=== PATIENT | male | born 1955 | race Caucasian/White ===

== ENCOUNTER 2017-08-12 17:14 | Inpatient (IN) | payer MEDICARE ==
[~2017-08-12] VITALS: Ht 172.7 cm; Wt 69.5 kg
[~2017-08-12 17:14] MED LIST: CARV3.12 PO; FURO1TAB62 PO; HYDR-3133 PO; LACT10SO PO; LANTINJ SQ; LORA1TAB12 PO; METF500T PO; NOVOINJ3 SQ; OLAN5TAB PO; OMEP20TA93 PO; ONGL5TAB PO; QUET5TAB PO; SPIR50TA PO; TEMA30CA PO; ZIPR1CAP12 PO
[2017-08-12 17:45] VITALS: BP 190/85; PULSE 108; RESP 28; TEMP 101.2; O2SAT 95
--- NOTE | 2017-08-12 18:04 | HHI.HP ---
HPI Service [facility] Primary Care Physician Non-Staff Admission Diagnosis Diagnoses: Chief Complaint: confused, coughing Travel History International Travel<30 Days: No Contact w/Intl Traveler <30 Da: No Traveled to Known Affected Are: No History of Present Illness 61-year-old white male being admitted for encephalopathy and sepsis 2/2 PNA. History is limited as the patient is currently by himself upon presentation at our facility, remaining history obtained from emergency room physician and records. Patient himself states that he came over to the emergency room and [place] because he had a fever at home. He reports having a cough for the past week denies having any shortness of breath outside of his coughing spells. Reports having some nausea but no vomiting. Says he has not been able to produce any sputum but his cough does sound wet. Denies any diarrhea. He reports having cough induced chest pain as well. He also reports burning with urination. The emergency room physician mentioned that his says that he was confused this morning as well. Patient also reports having some right sided back pain as well that is new. He cannot answer where he is nor what month or year as it is accurately; additionally he is very slow in responding to these questions. In the emergency room chest x-ray was obtained which I have been reviewed which looks clear but the radiologist is reading a left lower lobe infiltrate. Patient was given IV fluids Rocephin and azithromycin out there before being transferred over. UA has significant WBCs. Patient has a past medical history significant for cirrhosis. He himself cannot specify the reason behind his cirrhosis. He says he used to drink but when asked when he stopped drinking, he significantly appears to space out and yet cannot answer the question. Nursing contact the who says he takes antipsychotic medications of olanzapine, ziprasidone, and quetiapine all because he has "manic depression and schizophrenia". Review of Systems Except as stated in HPI: all other systems reviewed are Neg Past Family Social History Past Medical History Significant for cirrhosis, hepatic encephalopathy, ascites. The patient has home meds listed for ziprasidone, quetiapine, and olanzapine. Allergies: Coded Allergies: Penicillins (Verified Allergy, Severe, Rash, 08/12/17) Physical Exam Physical Exam VS: afebrile GENERAL: Lying in bed, is in mild distress from his coughing spells, appears to be shaking from his fevers. SKIN: Warm and dry. EYES: Pupils equal and round and reactive. Has some scleral icterus. Also has mucus over his eyelashes bilaterally. ENT: No nasal bleeding or discharge. Mucous membranes pink and moist. CARDIOVASCULAR: tachycardic rate and reg rhythm. 1/6 ejection murmur RESPIRATORY: No accessory muscle use. Coarse breath sounds bilaterally with minimal crackles heard in the bases. GASTROINTESTINAL: Abdomen soft, non-tender, nondistended. Extremities: No clubbing, cyanosis, or edema. No obvious deformities. MUSCULOSKELETAL: grossly intact ROM with 5/5 strength in upper and lower extremities proximally; adequate muscle bulk and tone for age and habitus. Has mild right CVA tenderness to palpation. No tenderness to palpation over the spinous processes. NEUROLOGICAL: Is awake, but has slowed responses to my questions. Is able to follow commands well. Negative straight leg raise bilaterally, has intact chin to chest flexion with no nuchal rigidity noted. Has no tenderness to palpation over the occiput. PSYCHIATRIC: Appropriate mood and affect; insight and judgment are impaired. Caprini VTE Risk Assessment Caprini VTE Risk Assessment: Mod/High Risk (score >= 2) VTE Pharm Contraindication: High risk for bleeding Caprini Risk Assessment Model Point Value = 1 Point Value = 2 Point Value = 3 Point Value = 5 Age 41-60 Minor surgery BMI > 25 kg/m2 Swollen legs Varicose veins or History of unexplained or recurrent spontaneous Oral contraceptives or hormone replacement Sepsis (< 1 month) Serious lung disease, including pneumonia (< 1 month) Abnormal pulmonary function Acute myocardial infarction Congestive heart failure (< 1 month) History of inflammatory bowel disease Medical patient at bed rest Age 61-74 Arthroscopic surgery Major open surgery (> 45 min) Laparoscopic surgery (> 45 min) Malignancy Confined to bed (> 72 hours) Immobilizing plaster cast Central venous access Age >= 75 History of VTE Family history of VTE Factor V Leiden Prothrombin [id number] Lupus anticoagulant Anticardiolipin antibodies Elevated serum homocysteine Heparin-induced thrombocytopenia Other congenital or acquired thrombophilia Stroke (< 1 month) Elective arthroplasty Hip, pelvis, or leg fracture Acute spinal cord injury (< 1 month) Prophylaxis Regimen Total Risk Factor Score Risk Level Prophylaxis Regimen 0-1 Low Early ambulation 2 Moderate Order ONE of the following: *Sequential Compression Device (SCD) *Heparin 5000 units SQ BID 3-4 Higher Order ONE of the following medications: *Heparin 5000 units SQ TID *Enoxaparin/Lovenox 40 mg SQ daily (WT < 150 kg, CrCl > 30 mL/min) *Enoxaparin/Lovenox 30 mg SQ daily (WT < 150 kg, CrCl > 10-29 mL/min) *Enoxaparin/Lovenox 30 mg SQ BID (WT < 150 kg, CrCl > 30 mL/min) AND/OR *Sequential Compression Device (SCD) 5 or more Highest Order ONE of the following medications: *Heparin 5000 units SQ TID (Preferred with Epidurals) *Enoxaparin/Lovenox 40 mg SQ daily (WT < 150 kg, CrCl > 30 mL/min) *Enoxaparin/Lovenox 30 mg SQ daily (WT < 150 kg, CrCl > 10-29 mL/min) *Enoxaparin/Lovenox 30 mg SQ BID (WT < 150 kg, CrCl > 30 mL/min) AND *Sequential Compression Device (SCD) Assessment and Plan Assessment and Plan 61-year-old white male admitted for sepsis and encephalopathy secondary to pneumonia Sepsis (HR > 90 at ER, fever of 101 on floor) -Blood cultures drawn at emergency room, follow-up -Chest x-ray read indicates possible left lower lobe infiltrate -Continue with Rocephin and azithromycin, may need to expand antibiotics if fevers persist or if CT abd shows pyelonephritis -s/p IV fluid boluses followed by now IV hydration -CT scan of the abdomen and pelvis to rule out pyelonephritis as the urine may be indicative of pyelonephritis -lactic acid 2.2 upon ER presentation Encephalopathy -Possibly secondary to infection as well as hyperammonemia (58) -Fall precautions, treat infection, will give lactulose and zinc and repeat ammonia -head CT neg in ER -We will hold home Vistaril in light of altered mental status -not suspicious for meningitis at this time, monitor Cirrhosis -Continue home spironolactone and Lasix and coreg DIANELYS -Likely from dehydration from sepsis, IV hydration, renal function recheck in a.m. Hepatic insufficiency -Likely from cirrhosis, INR 1.3, minimizing antiplatelet drugs thrombocytopenia -likely 2/2 ETOH dx, repeat CBC in AM Diabetes -Continue with low-dose sliding scale, holding home medications for the time being Psych d/o -continue home meds, will obtain EKG to eval QTc given pt is on 3 atypical antipsychotics SCDs Physician Certification 2 Midnight Certification Type: Admission for Inpatient Services Order for Inpatient Services The services are ordered in accordance with Medicare regulations or non- Medicare payer requirements, as applicable. In the case of services not specified as inpatient-only, they are appropriately provided as inpatient services in accordance with the 2-midnight benchmark. Estimated LOS (days): 3 3 days is the estimated time the patient will need to remain in the hospital, assuming treatment plan goals are met and no additional complications. Post-Hospital Plan: Not yet determined Maximino Weaver MD Aug 12, 2017 18:04
[2017-08-12] MEDS ORDERED: TEMAZEPAM 15 MG CAP PO PRN (18:15)
[2017-08-12] MEDS ORDERED: GLUCAGON 1 MG/ML VIAL OTHER PRN (18:15)
[2017-08-12] MEDS: SODIUM CHLOR 0.9% 1000 ML INJ 1,000 ML IV SCH (18:15)
[2017-08-12] MEDS ORDERED: DEXTROSE 50% IN WATER 50 ML VIAL(D50) IV PUSH PRN (18:15)
[2017-08-12] MEDS ORDERED: LORazepam 1 MG TAB PO PRN (18:15)
[2017-08-12] MEDS: LACTULOSE SYRUP 20 GM/30 ML CUP PO SCH ×2 (18:30→20:41)
[2017-08-12] MEDS: SPIRONOLACTONE 50 MG TAB PO SCH (18:30)
[2017-08-12] MEDS: ACETAMINOPHEN 500 MG CPLT PO PRN (19:21)
[2017-08-12 20:00] VITALS: BP 156/85; PULSE 105; RESP 16; TEMP 100.7; O2SAT 97
[2017-08-12] MEDS ORDERED: IOHEXOL 350 MG/ML 10 ML VIAL (for RAD DIAG) IVCONTRAST ONE (20:00)
[2017-08-12] MEDS: METFORMIN HOLD POST IV CONTRAST SCH (20:00)
[2017-08-12] MEDS: CARVEDILOL 3.125 MG TAB PO SCH (20:41)
--- NOTE | 2017-08-12 20:42 | RADRPT ---
EXAM DATE/TIME: 08/12/2017 19:57 [facility] COMPARISON: No previous studies available for comparison. INDICATIONS : Polynephritis. IV CONTRAST: 75 cc Omnipaque 350 (iohexol) IV ORAL CONTRAST: No oral contrast ingested. RADIATION DOSE: 10.10 CTDIvol (mGy) MEDICAL HISTORY : Hypertension. Diabetes mellitus type 2. Cerebrovascular disease. SURGICAL HISTORY : None. ENCOUNTER: Initial ACUITY: 2 days PAIN SCALE: 8/10 LOCATION: Bilateral upper quadrant lower quadrant. TECHNIQUE: Volumetric scanning of the abdomen and pelvis was performed. Using automated exposure control and ad justment of the mA and/or kV according to patient size, radiation dose was kept as low as reasonably achievable to obtain optimal diagnostic quality images. DICOM format image data is available electro nically for review and comparison. FINDINGS: Small left pleural effusion. Extensive varices around the distal esophagus. Liver cirrhosis with live r decreased in size. Splenomegaly to about 18 cm. Extensive retroperitoneal and perisplenic varices. There are patchy perfusion defects in the kidneys most notable upper pole left kidney most characteri stic of pyelonephritis. No hydronephrosis. Calcified gallstones in the gallbladder neck. No significant biliary ductal dilatation. No ascites. Mild ileus. No free air. No acute bony abnormalities. CONCLUSION: 1. Multifocal areas of diminished perfusion in the kidneys most characteristic of pyelonephritis. No abscess. No hydronephrosis. 2. Liver cirrhosis with extensive varices. Splenomegaly. No ascites. 3. Calcified gallstones in the gallbladder neck. Jason Roe MD on August 12, 2017 at 20:36 Board Certified Radiologist. This report was verified electronically.
[2017-08-12] MEDS: INSULIN NovoLIN REGULAR SUPPLEMENTAL SCALE SQ SCH (20:48)
[2017-08-12] MEDS ORDERED: ZIPRASIDONE HCL 80 MG CAP PO SCH (21:00)
[2017-08-12] MEDS ORDERED: QUEtiapine FUMARATE 25 MG TAB PO SCH (21:00)
[2017-08-13] VITALS: BP 147/85; PULSE 103; RESP 16; TEMP 99.3; O2SAT 95
[2017-08-13] MEDS: SODIUM CHLOR 0.9% 1000 ML INJ 1,000 ML IV SCH ×2 (03:37→14:56)
[2017-08-13 06:24] LABS: AUTOMATED NEUTROPHIL # 4.8 TH/MM3 (1.8-7.7); BASOPHIL % 0.3 % (0.0-2.0); EOSINOPHIL % 0.5 % (0.0-4.0); HEMATOCRIT 33.7 % (39.0-51.0); HEMOGLOBIN 11.8 GM/DL (13.0-17.0); LYMPH % 13.4 % (9.0-44.0); LYMPHOCYTE # 0.8 TH/MM3 (1.0-4.8); MEAN CELL VOLUME 85.9 FL (80.0-100.0); MEAN CORPUSCULAR HEMOGLOBIN 30.2 PG (27.0-34.0); MEAN CORPUSCULAR HGB CONC 35.1 % (32.0-36.0); MEAN PLATELET VOLUME 9.7 FL (7.0-11.0); MONO % 9.5 % (0.0-8.0); MONOCYTE # 0.6 TH/MM3 (0-0.9); NEUT % 76.3 % (16.0-70.0); PLATELET COUNT 68 TH/MM3 (150-450); RED BLOOD COUNT 3.92 MIL/MM3 (4.50-5.90); RED CELL DISTRIBUTION WIDTH 14.6 % (11.6-17.2); WHITE BLOOD COUNT 6.2 TH/MM3 (4.0-11.0)
[2017-08-13 06:36] LABS: CALCIUM 7.9 MG/DL (8.5-10.1)
[2017-08-13 06:37] LABS: BICARBONATE 24.9 MEQ/L (21.0-32.0)
[2017-08-13 06:40] LABS: CREATININE 1.5 MG/DL (0.60-1.30)
[2017-08-13 08:00] VITALS: BP 154/73; PULSE 76; RESP 20; TEMP 101.9; O2SAT 95
[2017-08-13] MEDS ORDERED: cefTRIAXone INJ 1,000 MG in SODIUM CHLORIDE 0.9% INJ 100 ML IV SCH (08:00)
[2017-08-13] MEDS: INSULIN NovoLIN REGULAR SUPPLEMENTAL SCALE SQ SCH ×4 (08:00→20:58)
[2017-08-13] MEDS: ACETAMINOPHEN 500 MG CPLT PO PRN ×2 (08:12→20:58)
[2017-08-13] MEDS ORDERED: Vancomycin Consult Pharmacy 1 EA OTHER SCH (08:30)
[2017-08-13] MEDS ORDERED: MISCELLANEOUS PHARMACY INFORMATION XX PRN ×2 (08:30)
[2017-08-13] MEDS ORDERED: VANCOMYCIN INJ 1,000 MG in SODIUM CHLOR 0.9% 250 ML INJ 250 ML IV ONE (08:33)
[2017-08-13] MEDS ORDERED: AZITHROMYCIN INJ 500 MG in SODIUM CHLOR 0.9% 250 ML INJ 250 ML IV SCH (09:00)
[2017-08-13] MEDS: LACTULOSE SYRUP 20 GM/30 ML CUP PO SCH ×2 (09:22→20:45)
[2017-08-13] MEDS: PANTOPRAZOLE SOD 20 MG DELAYED RELEASE TAB PO SCH (09:22)
[2017-08-13] MEDS: FUROSEMIDE 20 MG TAB PO SCH (09:23)
[2017-08-13] MEDS: OLANZapine 5 MG TAB PO SCH (09:23)
[2017-08-13] MEDS: SPIRONOLACTONE 50 MG TAB PO SCH (09:23)
[2017-08-13] MEDS: CARVEDILOL 3.125 MG TAB PO SCH ×2 (09:23→20:45)
[2017-08-13] MEDS ORDERED: MEROPENEM INJ 1,000 MG in SODIUM CHLORIDE 0.9% INJ 100 ML IV SCH (10:00)
[2017-08-13 12:00] VITALS: BP 151/81; PULSE 75; RESP 20; TEMP 99.8; O2SAT 97
--- NOTE | 2017-08-13 14:58 | HHI.PR ---
Subjective Remarks Nursing report patient still having fevers this morning. Patient himself says that his pain is better in his lower back. thinks that his mental status is more improved compared to yesterday. However they think he is coughing more today. Objective Vital Signs Date Time Temp Pulse Resp B/P (MAP) Pulse Ox O2 Delivery O2 Flow Rate FiO2 08/13/17 12:00 99.8 75 20 151/81 (104) 97 08/13/17 08:00 101.9 76 20 154/73 (100) 95 08/13/17 00:00 99.3 103 16 147/85 (105) 95 08/12/17 20:00 100.7 105 16 156/85 (108) 97 08/12/17 17:45 101.2 108 28 190/85 (120) 95 I/O 08/12/17 08/12/17 08/12/17 08/13/17 08/13/17 08/13/17 07:00 15:00 23:00 07:00 15:00 23:00 Intake Total 480 ml 1052 ml Balance 480 ml 1052 ml Intake Oral 480 ml IV Total 1052 ml # Voids 5 # Bowel Movements 4 Result Diagram: 08/13/17 0527 08/13/17 0527 Imaging Last Impressions Abdomen/Pelvis CT 08/12/17 0000 Signed Impressions: Service Date/Time: Saturday, August 12, 2017 19:57 - CONCLUSION: 1. Multifocal areas of diminished perfusion in the kidneys most characteristic of pyelonephritis. No abscess. No hydronephrosis. 2. Liver cirrhosis with extensive varices. Splenomegaly. No ascites. 3. Calcified gallstones in the gallbladder neck. Jason Roe MD Objective Remarks Patient lying in bed, no acute distress Appears more awake alert and sharp today Is alert and oriented 3 Clear lungs bilaterally with no acute distress Has no obvious bilateral flank tenderness to palpation today A/P Assessment and Plan 61-year-old white male admitted for sepsis and encephalopathy secondary to pneumonia Sepsis -Blood cultures drawn at [place] emergency room, follow-up -Chest x-ray read indicates possible left lower lobe infiltrate -Given that CT abdomen is suspicious for pyelonephritis as well as urine analysis, I have switched his antibiotics from Rocephin and azithromycin to meropenem and vancomycin and consulted infectious disease since he is septic -IV hydration Encephalopathy -improving, -Fall precautions, treat infection, -continue lactulose and zinc and repeat ammonia -head CT neg in ER -not suspicious for meningitis at this time, monitor Cirrhosis -Continue home spironolactone and Lasix and coreg DIANELYS -improving, BMP in AM Hepatic insufficiency -Likely from cirrhosis, INR 1.3, minimizing antiplatelet drugs thrombocytopenia -likely 2/2 ETOH dx, stable Diabetes -Continue with low-dose sliding scale, holding home medications for the time being Psych d/o -continue home meds, Qtc stable at 480 SCDs Maximino Weaver MD Aug 13, 2017 14:58
--- NOTE | 2017-08-13 15:40 | PD.ID.CON ---
History of Present Illness Service ID Consult Requested By Dr Rasmussen Reason for Consult septic pyelo Primary Care Physician Non-Staff Diagnoses: History of Present Illness 61 yo male with h/o ETOH induced liver cirrhosis presented with 8 days of fever, chills, L side back pain for few days Presented with temps 101-102 range, high ammonia level Non comliant with lactulose Quit diking over 20 yrs ago No leukocytosis Review of Systems Constitutional: COMPLAINS OF: Fever, Chills Respiratory: COMPLAINS OF: Cough Gastrointestinal: COMPLAINS OF: Diarrhea Musculoskeletal: COMPLAINS OF: Back pain (L) Except as stated in HPI: all other systems reviewed are Neg Past Family Social History Allergies: Coded Allergies: Penicillins (Verified Allergy, Severe, Rash, 08/12/17) Past Medical History liver cirrosis HTN Past Surgical History none Active Ordered Medications Medications where reviewed in EMR Antibiotics Include: vancomycin meropenem Family History reviewed non contributory Social History no tobacco + past tobacco No current ETOH no IVDU Physical Exam Vital Signs Vital Signs Date Time Temp Pulse Resp B/P (MAP) Pulse Ox O2 Delivery O2 Flow Rate FiO2 08/13/17 12:00 99.8 75 20 151/81 (104) 97 08/13/17 08:00 101.9 76 20 154/73 (100) 95 08/13/17 00:00 99.3 103 16 147/85 (105) 95 08/12/17 20:00 100.7 105 16 156/85 (108) 97 08/12/17 17:45 101.2 108 28 190/85 (120) 95 Physical Exam CONSTITUTIONAL/GENERAL: This is an adequately nourished patient, in no apparent distress. TUBES/LINES/DRAINS: SKIN: No jaundice, rashes, or lesions. Skin temperature appropriate. Not diaphoretic. HEAD: Atraumatic. Normocephalic. EYES: Pupils equal and round and reactive. Extraocular motions intact. No scleral icterus. No injection or drainage. Fundi not examined. ENT: Hearing grossly normal. Nose without bleeding or purulent drainage. Throat without visible erythema, exudates, masses, or lesions. NECK: Trachea midline. Supple, nontender. No palpable thyroid enlargement or nodularity. CARDIOVASCULAR: Regular rate and rhythm without murmurs, gallops, or rubs. No JVD. Peripheral pulses symmetric. RESPIRATORY/CHEST: Symmetric, unlabored respirations. Clear to auscultation. Breath sounds equal bilaterally. No wheezes, rales, or rhonchi. GASTROINTESTINAL: Abdomen soft, non-tender, nondistended. No hepato-splenomegaly , or palpable masses. No guarding. Bowel sounds present. GENITOURINARY: Without palpable bladder distension. + moderate L CVA tenderness MUSCULOSKELETAL: + clubbing, no cyanosis, or edema. No joint tenderness or effusion noted. No calf tenderness. No mottling or clubbing. LYMPHATICS: No palpable cervical or supraclavicular adenopathy. NEUROLOGICAL: Awake and alert. Motor and sensory grossly within normal limits. Follows commands. Clear speech. Moves all extremities. PSYCHIATRIC: No obvious anxiety/depression. no apparent hallucinations or other psychotic thought process. Laboratory Laboratory Tests Test 08/13/17 05:27 White Blood Count 6.2 Red Blood Count 3.92 Hemoglobin 11.8 Hematocrit 33.7 Mean Corpuscular Volume 85.9 Mean Corpuscular Hemoglobin 30.2 Mean Corpuscular Hemoglobin Concent 35.1 Red Cell Distribution Width 14.6 Platelet Count 68 Mean Platelet Volume 9.7 Neutrophils (%) (Auto) 76.3 Lymphocytes (%) (Auto) 13.4 Monocytes (%) (Auto) 9.5 Eosinophils (%) (Auto) 0.5 Basophils (%) (Auto) 0.3 Neutrophils # (Auto) 4.8 Lymphocytes # (Auto) 0.8 Monocytes # (Auto) 0.6 Eosinophils # (Auto) 0.0 Basophils # (Auto) 0.0 CBC Comment AUTO DIFF Differential Comment AUTO DIFF CONFIRMED Platelet Estimate LOW Platelet Morphology Comment NORMAL Blood Urea Nitrogen 21 Creatinine 1.50 Random Glucose 179 Calcium Level 7.9 Sodium Level 142 Potassium Level 3.7 Chloride Level 112 Carbon Dioxide Level 24.9 Anion Gap 5 Estimat Glomerular Filtration Rate 48 Ammonia 39 Result Diagram: 08/13/17 0527 08/13/17 0527 Imaging Last Impressions Abdomen/Pelvis CT 08/12/17 0000 Signed Impressions: Service Date/Time: Saturday, August 12, 2017 19:57 - CONCLUSION: 1. Multifocal areas of diminished perfusion in the kidneys most characteristic of pyelonephritis. No abscess. No hydronephrosis. 2. Liver cirrhosis with extensive varices. Splenomegaly. No ascites. 3. Calcified gallstones in the gallbladder neck. Jason Roe MD Assessment and Plan Assessment and Plan Fever, L side pain, suspected pyelonephritis PCN allergy +cough ? flu - pt reports sick contacts@ home Liver cirrhosis; presented with decompensation Diarrnea (probably 2/2 lactulose) - cont vanco for now - switch meropenem to azactam UA/C+S flu test c.diff Discussed Condition With JANELLE Gray,Kristen Puentes MD Aug 13, 2017 15:40
[2017-08-13 16:00] VITALS: BP 155/83; PULSE 61; RESP 20; TEMP 99.6; O2SAT 98
[2017-08-13 16:38] LABS: BILIRUBIN, URINE NEG (NEG); BLOOD, URINE MOD (NEG); GLUCOSE,URINE NEG (NEG); KETONE, URINE NEG (NEG); NITRITE,URINE NEG (NEG); URINE LEUKOCYTE ESTERASE SMALL (NEG)
[2017-08-13 16:45] LABS: URINE COLOR YELLOW (YELLW/STRAW)
[2017-08-13 16:46] LABS: SQUAMOUS EPITHELIAL CELL URINE 0-5 /hpf (0-5); WHITE BLOOD CELL CLUMPS OCC
[2017-08-13] MEDS: AZTREONAM INJ 2,000 MG in SODIUM CHLORIDE 0.9% INJ 100 ML IV SCH ×2 (16:57→20:46)
[2017-08-13 20:01] VITALS: BP 167/90; PULSE 80; RESP 12; TEMP 101.2; O2SAT 95
[2017-08-13] MEDS: METFORMIN HOLD POST IV CONTRAST SCH (20:44)
--- NOTE | 2017-08-13 21:47 | EKG ---
Date Performed: 08/12/2017 Time Performed: 18:57:49 PTAGE: 61 years EKG: SINUS TACHYCARDIA POSSIBLE LEFT ATRIAL ENLARGEMENT LEFT BUNDLE BRANCH BLOCK ABNORMAL ECG NO PREVIOUS TRACING DOCTOR: Romario Sharpe Interpretating Date/Time 08/13/2017 21:46:20
[2017-08-14 01:13] VITALS: BP 164/99; PULSE 75; RESP 14; TEMP 98.9; O2SAT 96
[2017-08-14] MEDS: SODIUM CHLOR 0.9% 1000 ML INJ 1,000 ML IV SCH ×3 (02:05→21:09)
[2017-08-14] MEDS: VANCOMYCIN 1 GM/200 ML PREMIX IV SCH ×2 (03:13→21:07)
[2017-08-14] MEDS: AZTREONAM INJ 2,000 MG in SODIUM CHLORIDE 0.9% INJ 100 ML IV SCH ×4 (04:07→21:12)
[2017-08-14 06:54] LABS: CALCIUM 7.7 MG/DL (8.5-10.1)
[2017-08-14 06:55] LABS: BICARBONATE 22.8 MEQ/L (21.0-32.0)
[2017-08-14 06:58] LABS: CREATININE 1.4 MG/DL (0.60-1.30)
[2017-08-14 08:00] VITALS: BP 173/83; PULSE 61; RESP 20; TEMP 100; O2SAT 95
[2017-08-14] MEDS: INSULIN NovoLIN REGULAR SUPPLEMENTAL SCALE SQ SCH ×4 (08:40→21:12)
[2017-08-14] MEDS: CARVEDILOL 3.125 MG TAB PO SCH ×2 (08:41→21:07)
[2017-08-14] MEDS: SPIRONOLACTONE 50 MG TAB PO SCH (08:41)
[2017-08-14] MEDS: PANTOPRAZOLE SOD 20 MG DELAYED RELEASE TAB PO SCH (08:41)
[2017-08-14] MEDS: OLANZapine 5 MG TAB PO SCH (08:41)
[2017-08-14] MEDS: LACTULOSE SYRUP 20 GM/30 ML CUP PO SCH ×2 (08:41→21:07)
[2017-08-14] MEDS: FUROSEMIDE 20 MG TAB PO SCH (08:41)
[2017-08-14 12:00] VITALS: BP 176/84; PULSE 70; RESP 20; TEMP 98.7; O2SAT 93
--- NOTE | 2017-08-14 12:41 | HHI.PR ---
Subjective Remarks Nursing report patient is having recurring fevers now again. Patient himself says he is still feels like he has unchanged cough. Otherwise he denies any flank pain anymore. Objective Vital Signs Date Time Temp Pulse Resp B/P (MAP) Pulse Ox O2 Delivery O2 Flow Rate FiO2 08/14/17 12:00 98.7 70 20 176/84 (114) 93 08/14/17 08:00 100.0 61 20 173/83 (113) 95 08/14/17 01:13 98.9 75 14 164/99 (120) 96 08/13/17 20:01 101.2 80 12 167/90 (115) 95 08/13/17 16:00 99.6 61 20 155/83 (107) 98 I/O 08/13/17 08/13/17 08/13/17 08/14/17 08/14/17 08/14/17 06:59 14:59 22:59 06:59 14:59 22:59 Intake Total 1052 ml 450 ml 1066 ml 2400 ml Balance 1052 ml 450 ml 1066 ml 2400 ml Intake Oral 600 ml IV Total 1052 ml 450 ml 466 ml 2400 ml # Voids 5 3 # Bowel Movements 5 3 Result Diagram: 08/13/17 0527 08/14/17 0616 Objective Remarks Patient lying in bed, no acute distress Appears more awake alert and sharp today Is alert and oriented 3 Clear lungs bilaterally with no acute distress Has no bilateral flank tenderness to palpation today A/P Assessment and Plan 61-year-old white male admitted for sepsis and encephalopathy secondary to pneumonia Sepsis -Blood cultures drawn at [place] emergency room, follow-up -Chest x-ray read indicates possible left lower lobe infiltrate -IV hydration Pyelonephritis - ID following, appreciate recs, switched from Merrem to Unasyn - fevers recurring, RN instructed to notify ID Bacteremia showing + from blood cultures of G neg rods UTI showing pansensitive Ecoli Encephalopathy -improving, -Fall precautions, treat infection, -continue lactulose and zinc and repeat ammonia -head CT neg in ER -not suspicious for meningitis at this time, monitor Cirrhosis -Continue home spironolactone and Lasix and coreg DIANELYS -improving slowly, BMP in AM Hepatic insufficiency -Likely from cirrhosis, INR 1.3, minimizing antiplatelet drugs -Aldactone chronic thrombocytopenia -likely 2/2 ETOH dx, stable Diabetes -Continue with low-dose sliding scale Psych d/o -continue home meds, Qtc stable at 480 upon admission SCDs Maximino Weaver MD Aug 14, 2017 12:41
--- NOTE | 2017-08-14 14:05 | HHI.PR ---
Addendum to Inpatient Note Additional Information pt see around 1345 full note to follow Kristen Gray MD Aug 14, 2017 14:05
--- NOTE | 2017-08-14 15:38 | HHI.IDPN ---
Subjective Subjective Remarks doing OK fever up to 101 over 24 hrs, today 100 Resp panel negative UA abnormal, clx neg @ 24 hrs c/o cough Antibiotics azactam vanco Allergies: Coded Allergies: Penicillins (Verified Allergy, Severe, Rash, 08/12/17) Objective . Vital Signs Date Time Temp Pulse Resp B/P (MAP) Pulse Ox O2 Delivery O2 Flow Rate FiO2 08/14/17 12:00 98.7 70 20 176/84 (114) 93 08/14/17 08:00 100.0 61 20 173/83 (113) 95 08/14/17 01:13 98.9 75 14 164/99 (120) 96 08/13/17 20:01 101.2 80 12 167/90 (115) 95 08/13/17 16:00 99.6 61 20 155/83 (107) 98 08/14/17 08/14/17 08/15/17 15:00 23:00 07:00 Intake Total 960 ml Balance 960 ml Intake Oral 960 ml # Voids 4 # Bowel Movements 4 . Laboratory Tests Test 08/13/17 05:27 White Blood Count 6.2 TH/MM3 Red Blood Count 3.92 MIL/MM3 Hemoglobin 11.8 GM/DL Hematocrit 33.7 % Mean Corpuscular Volume 85.9 FL Mean Corpuscular Hemoglobin 30.2 PG Mean Corpuscular Hemoglobin Concent 35.1 % Red Cell Distribution Width 14.6 % Platelet Count 68 TH/MM3 Mean Platelet Volume 9.7 FL Neutrophils (%) (Auto) 76.3 % Lymphocytes (%) (Auto) 13.4 % Monocytes (%) (Auto) 9.5 % Eosinophils (%) (Auto) 0.5 % Basophils (%) (Auto) 0.3 % Neutrophils # (Auto) 4.8 TH/MM3 Lymphocytes # (Auto) 0.8 TH/MM3 Monocytes # (Auto) 0.6 TH/MM3 Eosinophils # (Auto) 0.0 TH/MM3 Basophils # (Auto) 0.0 TH/MM3 CBC Comment AUTO DIFF Differential Comment AUTO DIFF CONFIRMED Platelet Estimate LOW Platelet Morphology Comment NORMAL Laboratory Tests Test 08/13/17 05:27 08/14/17 06:16 Blood Urea Nitrogen 21 MG/DL 20 MG/DL Creatinine 1.50 MG/DL 1.40 MG/DL Random Glucose 179 MG/DL 160 MG/DL Calcium Level 7.9 MG/DL 7.7 MG/DL Sodium Level 142 MEQ/L 143 MEQ/L Potassium Level 3.7 MEQ/L 3.7 MEQ/L Chloride Level 112 MEQ/L 113 MEQ/L Carbon Dioxide Level 24.9 MEQ/L 22.8 MEQ/L Anion Gap 5 MEQ/L 7 MEQ/L Estimat Glomerular Filtration Rate 48 ML/MIN 52 ML/MIN Ammonia 39 MCMOL/L Microbiology Date/Time Source Procedure Growth Status 08/13/17 16:30 Urine Clean Catch Urine Culture - Preliminary NO GROWTH IN 24 HOURS. Resulted Imaging Last Impressions Abdomen/Pelvis CT 08/12/17 0000 Signed Impressions: Service Date/Time: Saturday, August 12, 2017 19:57 - CONCLUSION: 1. Multifocal areas of diminished perfusion in the kidneys most characteristic of pyelonephritis. No abscess. No hydronephrosis. 2. Liver cirrhosis with extensive varices. Splenomegaly. No ascites. 3. Calcified gallstones in the gallbladder neck. Jason Roe MD Physical Exam CONSTITUTIONAL/GENERAL: This is an adequately nourished patient, in no apparent distress. TUBES/LINES/DRAINS: SKIN: No jaundice, rashes, or lesions. Skin temperature appropriate. Not diaphoretic. CARDIOVASCULAR: Regular rate and rhythm without murmurs, gallops, or rubs. No JVD. Peripheral pulses symmetric. RESPIRATORY/CHEST: Symmetric, unlabored respirations. Clear to auscultation. Breath sounds equal bilaterally. No wheezes, rales, or rhonchi. GASTROINTESTINAL: Abdomen soft, non-tender, nondistended. No hepato-splenomegaly , or palpable masses. No guarding. Bowel sounds present. GENITOURINARY: Without palpable bladder distension. + moderate L CVA tenderness MUSCULOSKELETAL: + clubbing, no cyanosis, or edema. No joint tenderness or effusion noted. No calf tenderness. No mottling or clubbing. LYMPHATICS: No palpable cervical or supraclavicular adenopathy. NEUROLOGICAL: Awake and alert. Motor and sensory grossly within normal limits. Follows commands. Clear speech. Moves all extremities. PSYCHIATRIC: No obvious anxiety/depression. no apparent hallucinations or other psychotic thought process. Assessment & Plan Remarks Assessment and Plan Assessment and Plan Fever, L side pain, suspected pyelonephritis PCN allergy +cough ? flu - pt reports sick contacts@ home; viral panel negative Liver cirrhosis; presented with decompensation Diarrnea (probably 2/2 lactulose) - neg c.diff - cont vanco for now - cont azactam - will add azithrom CXR fu Kristen Gray MD Aug 14, 2017 15:38
[2017-08-14 16:00] VITALS: BP 171/86; PULSE 65; RESP 20; TEMP 99.1; O2SAT 95
[2017-08-14] MEDS ORDERED: AZITHROMYCIN 250 MG TAB PO ONE (16:00)
--- NOTE | 2017-08-14 16:31 | RADRPT ---
EXAM DATE/TIME: 08/14/2017 15:44 [place] COMPARISON: CHEST PA & LAT, August 12, 2017, 11:19. INDICATIONS : Cough, fever, and shortness of breath MEDICAL HISTORY : Hypertension. Diabetes mellitus type II. SURGICAL HISTORY : None. ENCOUNTER: Subsequent ACUITY: 3 days PAIN SCORE: 0/10 LOCATION: Bilateral chest FINDINGS: Interval improvement in left lower lobe airspace disease. Mild diffuse interstitial prominence unchan ged from prior exam. Cardiomediastinal contours are within normal limits. Remainder of the exam is un changed. CONCLUSION: 1. Near interval resolution of left lower lobe airspace disease. Bryan Ratliff MD on August 14, 2017 at 16:27 Board Certified Radiologist. This report was verified electronically.
[2017-08-14 20:00] VITALS: BP 178/93; PULSE 62; RESP 20; TEMP 99.2; O2SAT 96
[2017-08-14 20:20] LABS: CREATININE 1.4 MG/DL (0.60-1.30)
[2017-08-15] VITALS: BP_SYST 151; BP_SYST 178; BP_DIAS 80; BP_DIAS 93; PULSE 62; PULSE 71; RESP 20; TEMP 99.2; O2SAT 95; O2SAT 96
[2017-08-15] MEDS: AZTREONAM INJ 2,000 MG in SODIUM CHLORIDE 0.9% INJ 100 ML IV SCH ×2 (04:30→09:40)
[2017-08-15] MEDS: SODIUM CHLOR 0.9% 1000 ML INJ 1,000 ML IV SCH (05:36)
[2017-08-15 06:35] LABS: AUTOMATED NEUTROPHIL # 2.2 TH/MM3 (1.8-7.7); BASOPHIL # 0.1 TH/MM3 (0-0.2); BASOPHIL % 1.5 % (0.0-2.0); EOSINOPHIL # 0.1 TH/MM3 (0-0.4); EOSINOPHIL % 3.1 % (0.0-4.0); HEMATOCRIT 34.3 % (39.0-51.0); HEMOGLOBIN 11.6 GM/DL (13.0-17.0); LYMPH % 22.5 % (9.0-44.0); LYMPHOCYTE # 0.8 TH/MM3 (1.0-4.8); MEAN CELL VOLUME 86.8 FL (80.0-100.0); MEAN CORPUSCULAR HEMOGLOBIN 29.4 PG (27.0-34.0); MEAN CORPUSCULAR HGB CONC 33.9 % (32.0-36.0); MEAN PLATELET VOLUME 9.2 FL (7.0-11.0); MONO % 8.5 % (0.0-8.0); MONOCYTE # 0.3 TH/MM3 (0-0.9); NEUT % 64.4 % (16.0-70.0); PLATELET COUNT 94 TH/MM3 (150-450); RED BLOOD COUNT 3.95 MIL/MM3 (4.50-5.90); RED CELL DISTRIBUTION WIDTH 14.3 % (11.6-17.2); WHITE BLOOD COUNT 3.5 TH/MM3 (4.0-11.0)
[2017-08-15 08:00] VITALS: BP 186/99; PULSE 68; RESP 16; TEMP 97.4; O2SAT 95
[2017-08-15] MEDS: INSULIN NovoLIN REGULAR SUPPLEMENTAL SCALE SQ SCH ×2 (08:00→13:35)
[2017-08-15] MEDS ORDERED: AZITHROMYCIN 250 MG TAB PO SCH (09:00)
[2017-08-15] MEDS: PANTOPRAZOLE SOD 20 MG DELAYED RELEASE TAB PO SCH (09:38)
[2017-08-15] MEDS: FUROSEMIDE 20 MG TAB PO SCH (09:38)
[2017-08-15] MEDS: SPIRONOLACTONE 50 MG TAB PO SCH (09:38)
[2017-08-15] MEDS: CARVEDILOL 3.125 MG TAB PO SCH (09:38)
[2017-08-15] MEDS: LACTULOSE SYRUP 20 GM/30 ML CUP PO SCH (09:38)
[2017-08-15] MEDS: OLANZapine 5 MG TAB PO SCH (09:57)
--- NOTE | 2017-08-15 10:17 | HHI.IDPN ---
Subjective Subjective Remarks doing OK no fever Resp panel negative UA abnormal, clx neg @ 24 hrs less cough improved CXR Antibiotics azactam vanco azithro Allergies: Coded Allergies: Penicillins (Verified Allergy, Severe, Rash, 08/12/17) Objective . Vital Signs Date Time Temp Pulse Resp B/P (MAP) Pulse Ox O2 Delivery O2 Flow Rate FiO2 08/15/17 08:00 97.4 68 16 186/99 (128) 95 08/15/17 00:00 99.2 71 20 151/80 (103) 95 08/14/17 20:00 99.2 62 20 178/93 (121) 96 08/14/17 16:00 99.1 65 20 171/86 (114) 95 08/14/17 12:00 98.7 70 20 176/84 (114) 93 . Laboratory Tests Test 08/15/17 05:10 White Blood Count 3.5 TH/MM3 Red Blood Count 3.95 MIL/MM3 Hemoglobin 11.6 GM/DL Hematocrit 34.3 % Mean Corpuscular Volume 86.8 FL Mean Corpuscular Hemoglobin 29.4 PG Mean Corpuscular Hemoglobin Concent 33.9 % Red Cell Distribution Width 14.3 % Platelet Count 94 TH/MM3 Mean Platelet Volume 9.2 FL Neutrophils (%) (Auto) 64.4 % Lymphocytes (%) (Auto) 22.5 % Monocytes (%) (Auto) 8.5 % Eosinophils (%) (Auto) 3.1 % Basophils (%) (Auto) 1.5 % Neutrophils # (Auto) 2.2 TH/MM3 Lymphocytes # (Auto) 0.8 TH/MM3 Monocytes # (Auto) 0.3 TH/MM3 Eosinophils # (Auto) 0.1 TH/MM3 Basophils # (Auto) 0.1 TH/MM3 CBC Comment AUTO DIFF Differential Comment AUTO DIFF CONFIRMED Platelet Estimate LOW Platelet Morphology Comment NORMAL Laboratory Tests Test 08/14/17 06:16 08/14/17 19:50 Blood Urea Nitrogen 20 MG/DL Creatinine 1.40 MG/DL 1.40 MG/DL Random Glucose 160 MG/DL Calcium Level 7.7 MG/DL Sodium Level 143 MEQ/L Potassium Level 3.7 MEQ/L Chloride Level 113 MEQ/L Carbon Dioxide Level 22.8 MEQ/L Anion Gap 7 MEQ/L Estimat Glomerular Filtration Rate 52 ML/MIN 52 ML/MIN Microbiology Date/Time Source Procedure Growth Status 2/14/18 16:30 Urine Clean Catch Urine Culture - Preliminary NO GROWTH IN 24 HOURS. Resulted Imaging Last Last Impressions Chest X-Ray 08/14/17 0000 Signed Impressions: Service Date/Time: July 15:44 - CONCLUSION: 1. Near interval resolution of left lower lobe airspace disease. Bryan Ratliff MD Abdomen/Pelvis CT 08/12/17 0000 Signed Impressions: Service Date/Time: Saturday, August 12, 2017 19:57 - CONCLUSION: 1. Multifocal areas of diminished perfusion in the kidneys most characteristic of pyelonephritis. No abscess. No hydronephrosis. 2. Liver cirrhosis with extensive varices. Splenomegaly. No ascites. 3. Calcified gallstones in the gallbladder neck. Jason Roe MD Physical Exam CONSTITUTIONAL/GENERAL: This is an adequately nourished patient, in no apparent distress. TUBES/LINES/DRAINS: SKIN: No jaundice, rashes, or lesions. Skin temperature appropriate. Not diaphoretic. CARDIOVASCULAR: Regular rate and rhythm without murmurs, gallops, or rubs. No JVD. Peripheral pulses symmetric. RESPIRATORY/CHEST: Symmetric, unlabored respirations. Clear to auscultation. Breath sounds equal bilaterally. No wheezes, rales, or rhonchi. GASTROINTESTINAL: Abdomen soft, non-tender, nondistended. No hepato-splenomegaly , or palpable masses. No guarding. Bowel sounds present. GENITOURINARY: Without palpable bladder distension. + moderate L CVA tenderness MUSCULOSKELETAL: + clubbing, no cyanosis, or edema. No joint tenderness or effusion noted. No calf tenderness. No mottling or clubbing. NEUROLOGICAL: Awake and alert. Motor and sensory grossly within normal limits. Follows commands. Clear speech. Moves all extremities. PSYCHIATRIC: No obvious anxiety/depression. no apparent hallucinations or other psychotic thought process. Assessment & Plan Remarks Assessment and Plan Assessment and Plan Fever, L side pain, suspected pyelonephritis - urine clx negative, but h/o prior abx use PCN allergy +cough ? flu - pt reports sick contacts@ home; viral panel negative - improved clinically and radiologically Liver cirrhosis; presented with decompensation Diarrnea (probably 2/2 lactulose) - neg c.diff - dc vanco, azactam - will add azithrom - start levaquin for UTI - dc azithro, levqaquin will cover atypicals as well CXR fu BC OK to dc if remians afebrile, cultures negative fu clx untill final dw Kristen Perez MD Aug 15, 2017 10:17
[2017-08-15] MEDS ORDERED: LEVOFLOXACIN 750 MG TAB PO SCH (11:00)
[2017-08-15 12:00] VITALS: BP 165/95; PULSE 75; RESP 16; TEMP 96.7; O2SAT 93
--- NOTE | 2017-08-15 12:09 | HHI.DCPOC ---
Discharge Care Plan Diagnosis: (1) UTI (urinary tract infection) (2) Pneumonia Goals to Promote Your Health * To prevent worsening of your condition and complications * To maintain your health at the optimal level Directions to Meet Your Goals Take your medications as prescribed Follow your dietary instruction Follow activity as directed Keep your appointments as scheduled Take your immunizations and boosters as scheduled If your symptoms worsen call your PCP, if no PCP go to Urgent Care Center or Emergency Room Smoking is Dangerous to Your Health. Avoid second hand smoke Call the 24-hour hour crisis hotline for domestic abuse at Payton Kruse MD Aug 15, 2017 12:09
[2017-08-15] MEDS ORDERED: LEVA750T9 PO (12:10)
--- NOTE | 2017-08-15 12:13 | HHI.DS ---
Discharge Summary Admission Date Aug 12, 2017 at 17:15 Discharge Date: Aug 15, 2017 Admitting Diagnosis (1) UTI (urinary tract infection) ICD Code: N39.0 - Urinary tract infection, site not specified (2) Pneumonia ICD Code: J18.9 - Pneumonia, unspecified organism Procedures None Brief History - From Admission 61-year-old Latin male being admitted for encephalopathy and sepsis 2/ PNA. History is limited as the patient is currently by himself upon presentation at our facility, remaining history obtained from emergency room physician and records. Patient himself states that he came over to the emergency room in [facility] because he had a fever at home. He reports having a cough for the past week denies having any shortness of breath outside of his coughing spells. Reports having some nausea but no vomiting. Says he has not been able to produce any sputum but his cough does sound wet. Denies any diarrhea. He reports having cough induced chest pain as well. He also reports burning with urination. The emergency room physician mentioned that his says that he was confused this morning as well. Patient also reports having some right sided back pain as well that is new. He cannot answer where he is nor what month or year as it is accurately; additionally he is very slow in responding to these questions. In the emergency room chest x-ray was obtained which I have been reviewed which looks clear but the radiologist is reading a left lower lobe infiltrate. Patient was given IV fluids Rocephin and azithromycin out there before being transferred over. UA has significant WBCs. Patient has a past medical history significant for cirrhosis. He himself cannot specify the reason behind his cirrhosis. He says he used to drink but when asked when he stopped drinking, he significantly appears to space out and yet cannot answer the question. Nursing contact the who says he takes antipsychotic medications of olanzapine, ziprasidone, and quetiapine all because he has "manic depression and schizophrenia". CBC/BMP: 08/15/17 0510 08/14/17 1950 Significant Findings Laboratory Tests Test 08/13/17 05:27 08/13/17 16:30 08/13/17 18:00 08/13/17 20:50 Red Blood Count 3.92 MIL/MM3 (4.50-5.90) Hemoglobin 11.8 GM/DL (13.0-17.0) Hematocrit 33.7 % (39.0-51.0) Platelet Count 68 TH/MM3 (150-450) Neutrophils (%) (Auto) 76.3 % (16.0-70.0) Monocytes (%) (Auto) 9.5 % (0.0-8.0) Lymphocytes # (Auto) 0.8 TH/MM3 (1.0-4.8) Platelet Estimate LOW (NORMAL) Blood Urea Nitrogen 21 MG/DL (7-18) Creatinine 1.50 MG/DL (0.60-1.30) Random Glucose 179 MG/DL (74-106) Calcium Level 7.9 MG/DL (8.5-10.1) Chloride Level 112 MEQ/L (98-107) Estimat Glomerular Filtration Rate 48 ML/MIN (>89) Ammonia 39 MCMOL/L (11-32) Urine Turbidity HAZY (CLEAR) Urine Occult Blood MOD (NEG) Urine Leukocyte Esterase SMALL (NEG) Urine RBC 4-9 /hpf (0-3) Urine WBC 9-14 /hpf (0-5) Urine WBC Clumps OCC (NONE) Test 08/14/17 06:16 08/14/17 19:50 08/15/17 05:10 Blood Urea Nitrogen 20 MG/DL (7-18) Creatinine 1.40 MG/DL (0.60-1.30) 1.40 MG/DL (0.60-1.30) Random Glucose 160 MG/DL (74-106) Calcium Level 7.7 MG/DL (8.5-10.1) Chloride Level 113 MEQ/L (98-107) Estimat Glomerular Filtration Rate 52 ML/MIN (>89) 52 ML/MIN (>89) White Blood Count 3.5 TH/MM3 (4.0-11.0) Red Blood Count 3.95 MIL/MM3 (4.50-5.90) Hemoglobin 11.6 GM/DL (13.0-17.0) Hematocrit 34.3 % (39.0-51.0) Platelet Count 94 TH/MM3 (150-450) Monocytes (%) (Auto) 8.5 % (0.0-8.0) Lymphocytes # (Auto) 0.8 TH/MM3 (1.0-4.8) Platelet Estimate LOW (NORMAL) Imaging Last Impressions Chest X-Ray 08/14/17 0000 Signed Impressions: Service Date/Time: July 15:44 - CONCLUSION: 1. Near interval resolution of left lower lobe airspace disease. Bryan Ratliff MD Abdomen/Pelvis CT 08/12/17 0000 Signed Impressions: Service Date/Time: Saturday, August 12, 2017 19:57 - CONCLUSION: 1. Multifocal areas of diminished perfusion in the kidneys most characteristic of pyelonephritis. No abscess. No hydronephrosis. 2. Liver cirrhosis with extensive varices. Splenomegaly. No ascites. 3. Calcified gallstones in the gallbladder neck. Jason Roe MD PE at Discharge GENERAL: This is a well-nourished, well-developed patient, in no apparent distress. CARDIOVASCULAR: Regular rate and rhythm without murmurs, gallops, or rubs. RESPIRATORY: Clear to auscultation. Breath sounds equal bilaterally. No wheezes , rales, or rhonchi. GASTROINTESTINAL: Abdomen soft, non-tender, nondistended. Normal active bowel sounds MUSCULOSKELETAL: Extremities without clubbing, cyanosis, or edema. NEURO: Alert & Oriented x4 to person, place, time, situation. Moves all ext x4 Pt update on day of discharge Patient doing well today. No further fevers. Discharge plans discussed with infectious disease team. Cultures are negative. Patient is on empiric antibiotic Hospital Course Patient seen and evaluated and treated for pneumonia with urinary tract infection. Antibiotics were chosen and patient continued to improve. His fevers resolved. He had some mild pancytopenia. Clinically improved. Discharge plans were discussed with the patient and with his care provider who is his ex-. Pt Condition on Discharge: Good Discharge Disposition: Disch w/ Home Health Serv Discharge Time: <= 30 minutes Discharge Instructions DIET: Follow Instructions for: As Tolerated, No Restrictions Activities you can perform: Regular-No Restrictions Follow up Referrals: PCP Follow-up - 1 Week with donna New Medications: Levofloxacin (Levaquin) 750 Mg Tablet 750 MG PO DAILY@1100 for Infection, #7 TAB Continued Medications: Carvedilol (Carvedilol) 3.125 Mg Tab 3.125 MG PO BID, #60 TAB 0 Refills Furosemide (Lasix) 20 Mg Tab 20 MG PO DAILY, #30 TAB 0 Refills Hydroxyzine HCl (Hydroxyzine HCl) 25 Mg Tab 25 MG PO DAILY, TAB 0 Refills Insulin Aspart Inj (Novolog Flexpen Inj) 300 Unit/3 Ml Pen 1 UNITS SQ for Blood Sugar Management, #1 PEN 0 Refills Insulin Glargine Inj (Lantus Solostar Pen Inj) 300 Unit/3 Ml Pen 1 UNITS SQ for Blood Sugar Management, PEN 0 Refills Lactulose Liq (Lactulose Liq) 10 Gm/15 Ml Soln 30 ML PO Q6H PRN for DIARRHEA, ML 0 Refills Lorazepam (Lorazepam) 1 Mg Tab 1 MG PO DAILY PRN for ANXIETY, TAB 0 Refills Metformin (Metformin) 500 Mg Tab 500 MG PO BIDPC for Blood Sugar Management, #60 TAB 0 Refills Olanzapine (Olanzapine) 5 Mg Tab 5 MG PO DAILY, #30 TAB 0 Refills Omeprazole (Omeprazole) 20 Mg Tab 20 MG PO DAILY, #30 TAB 0 Refills Quetiapine (Quetiapine) 50 Mg Tab 50 MG PO HS, #30 TAB 0 Refills Saxagliptin (Onglyza) 5 Mg Tab 5 MG PO DAILY for Blood Sugar Management, #30 TAB 0 Refills Spironolactone (Spironolactone) 50 Mg Tab 50 MG PO DAILY, #30 TAB 0 Refills Temazepam (Temazepam) 30 Mg Cap 30 MG PO HS PRN for INSOMNIA, #30 CAP 0 Refills Ziprasidone (Ziprasidone) 80 Mg Cap 80 MG PO BID, #60 CAP 0 Refills Payton Kruse MD Aug 15, 2017 12:13
[2017-08-15] MEDS ORDERED: PHARMACY ORDERED LAB ONE (14:45)
[2017-08-15 15:49] LABS: CALCIUM 8.1 MG/DL (8.5-10.1)
[2017-08-15 15:50] LABS: BICARBONATE 24.1 MEQ/L (21.0-32.0)
[2017-08-15 15:54] LABS: CREATININE 1.4 MG/DL (0.60-1.30)
--- NOTE | 2017-08-16 12:14 | HHI.FF ---
Face to Face Verification Diagnosis: (1) Pneumonia Physical Therapy Order: Evaluate and Treat, Improve ambulation Home Health Nursing Order: Medical education Signs/symptoms of disease process I have seen patient Ryan Zaldivar on 08/16/17. My clinical findings support the need for the requested home health care services because: Ltd mobility - disease progression Patient has SOB I certify that my clinical findings support that this patient is homebound because: Impaired cognitive ability/safety Payton Kruse MD Aug 16, 2017 12:14
== END 2017-08-15 16:05 | disposition home health service (06) | DRG 871 ==
LOC: PHEDDLT 17:14 → PH3A 17:15
PROVIDERS: ADMIT Hospitalist; ATTEND Hospitalist
DX: A41.9 Sepsis, unspecified organism (principal); G93.49 Other encephalopathy; N17.9 Acute kidney failure, unspecified; D61.818 Other pancytopenia; E72.20 Disorder of urea cycle metabolism, unspecified; J18.9 Pneumonia, unspecified organism; K74.60 Unspecified cirrhosis of liver; K52.1 Toxic gastroenteritis and colitis; N12 Tubulo-interstitial nephritis, not specified as acute or chronic; E86.0 Dehydration; E11.9 Type 2 diabetes mellitus without complications; I10 Essential (primary) hypertension; T47.3X5A Adverse effect of saline and osmotic laxatives, initial encounter; F20.9 Schizophrenia, unspecified; F31.9 Bipolar disorder, unspecified; Z79.4 Long term (current) use of insulin; Z88.0 Allergy status to penicillin; Z91.14 Patient's other noncompliance with medication regimen
CPT/HCPCS: 70450; 71045; 71046; 74177; 80048; 80053; 80307; 81001; 82010; 82140; 82565; 82948; 83605; 84484; 85025; 85610; 85730; 87040; 87077; 87086; 87186; 87205; 87493; 87633; 87804; 93005; 96365; 96367; J0456; J0696; J2185; J3370; J7030; J7050; Q9967